=== PATIENT | female | born 1985 | race Hispanic/Latino ===

== ENCOUNTER 2022-10-19 15:55 | Emergency (ER) | payer OTHER, SELFPAY ==
[2022-10-19] MEDS ORDERED: Morphine 4 MG/ML VIAL ONE (16:45)
[2022-10-19] MEDS ORDERED: HYDROmorphone 0.5 MG/0.5 ML SYRINGE ONE (17:22)
[2022-10-19] MEDS ORDERED: Fentanyl 100 MCG/2 ML VIAL ONE (18:30)
== END 2022-10-19 20:07 | disposition home or self-care (01) ==
LOC: CSHERS 15:55
DX: S52.572A Other intraarticular fracture of lower end of left radius, initial encounter for closed fracture (principal); S52.612A Displaced fracture of left ulna styloid process, initial encounter for closed fracture; V00.131A Fall from skateboard, initial encounter
CPT/HCPCS: 25605; 96374; 96375; J1170; J2270; J3010